=== PATIENT | female | born 1955 | race Caucasian/White ===

== ENCOUNTER 2016-09-05 09:00 | Inpatient (IN) | payer BC ==
[~2016-09-05] VITALS: Ht 165.1 cm; Wt 118.0 kg
--- NOTE | ~2016-09-05 | DS ---
PATIENT'S NAME: DIANNE GLEASON [facility] AGE: 60 Y [address] ROOM: [address] [place], [place] [address] LOCATION: [facility] ADMIT DATE: 09/10/2016 Discharge Summary DISCHARGE DATE: 09/12/2016 FAMILY PHYSICIAN: Herson Valderrama MD ATTENDING PHYSICIAN: Mary Ann Lynn PRIMARY DIAGNOSIS: Osteoarthritis, right hip. SECONDARY DIAGNOSIS: Not applicable. PROCEDURE PERFORMED: Right total hip arthroplasty. HISTORY: The patient is a 60-year-old female, who presents with advanced right hip degenerative joint disease and associated severely compromised activities of daily living. The patient has decided to proceed with total right hip arthroplasty after having been thoroughly counseled regarding the risks, benefits, limitations and alternatives. Please refer to the outpatient clinic notes and admission history and physical for this patient. HOSPITAL COURSE: The patient underwent a total right hip arthroplasty on 09/10/2016 without complications. Spinal anesthesia plus subcutaneous and periarticular local anesthesia (ropivacaine with epinephrine) was utilized. The patient received 24 hours of perioperative prophylactic antibiotics and remained hemodynamically stable, neurovascularly intact throughout the entire hospital course. The postoperative prophylactic deep venous thrombosis prophylaxis consisted of Xarelto, early mobilization and pneumatic compression devices. Daily physical therapy for gait training, transfer training, and reinforcement of hip dislocation precautions were received. The patient progressed well in physical therapy. On the date of discharge, 09/12/2016, the incision at the hip was healing well and showed no signs of infection. DISPOSITION: Home. DISCHARGE ACTIVITY: The patient is to bear weight as tolerated with strict hip dislocation precautions as instructed. There are to be no dressing changes. Dr. Lynn is to be notified immediately if there is any increased pain, fevers, chills, erythema or drainage. DISCHARGE MEDICATIONS: 1. Xarelto 10 mg one tab p.o. daily for 12 days for postoperative DVT prophylaxis. 2. Hydromorphone 2 mg 1 to 2 tabs p.o. every 4 hours p.r.n. for pain. 3. Diazepam 5 mg 1/2 to 1 tab p.o. every 6 hours p.r.n. for muscle spasms. 4. Gabapentin 300 mg one tab p.o. every night for seven days for pain. She was then instructed to continue all her other preadmission medications as PATIENT'S NAME: DIANNE GLEASON [facility] AGE: 60 Y [address] ROOM: [address] [address] LOCATION: [facility] ADMIT DATE: 09/10/2016 Discharge Summary DISCHARGE DATE: 09/12/2016 FAMILY PHYSICIAN: Herson Valderrama MD ATTENDING PHYSICIAN: Mary Ann Lynn instructed by her Internal Medicine doctor. FOLLOWUP: Followup appointment is to be with Dr. Lynn's office in 7 to 9 days postoperatively for her initial postoperative evaluation. MATT NORWOOD PA-C FOR MARY ANN LYNN MD SMW/modl /[id number] d: 09/19/16 0337 t: 09/20/16 1809, DISCHARGE SUMMARY
--- NOTE | ~2016-09-05 | OR ---
PATIENT'S NAME: DIANNE GLEASON [facility] AGE: 60 Y [address] ROOM: [place] [address] LOCATION: [facility] ADMIT DATE: 09/10/2016 OR/Procedure Report DISCHARGE DATE: FAMILY PHYSICIAN: ZENOBIA SHAH MD ATTENDING PHYSICIAN: MARY ANN LYNN SURGEON: Mary Ann Lynn MD TICK ERADICATOR: 1. Jan Maldonado PA-C. 2. Aguila Reynaga TECHNICIAN INVENTORY SPECIALIST/C4 PLANNER. DATE OF PROCEDURE: 09/10/2016 PRE-OP DIAGNOSIS: 1. Primary osteoarthritis, right hip. 2. Obesity (118 kg and 5 feet and 5 inches tall). POST-OP DIAGNOSIS: 1. Primary osteoarthritis, right hip. 2. Obesity (118 kg and 5 feet and 5 inches tall). OPERATION: Right total hip arthroplasty. ANESTHESIA: Spinal anesthesia plus subcutaneous and periarticular local anesthesia (ropivacaine with epinephrine). ESTIMATED BLOOD LOSS: Approximately 250 mL. DRAIN: None. SPECIMEN: None. COMPLICATIONS: None. IMPLANTS: 1. [place] Trident Tritanium size 54 mm hemispherical uncemented acetabular shell with 1 dome hole cover and no screws. 2. [place] X3 neutral acetabular polyethylene liner with 36 mm inner diameter. 3. [place] Accolade II size 5 standard-offset uncemented femoral component. 4. A 36 mm diameter Biolox femoral head with +0 mm neck length. INDICATION FOR SURGERY: The patient is a 60-year-old female who presents with advanced right hip primary osteoarthritis and associated severely compromised activities of daily living. The patient has decided to proceed with hip replacement after having been thoroughly counseled regarding the associated risks, benefits, and limitations. We have specifically reviewed the risks and implications of infection, deep venous thrombosis, pulmonary embolism, PATIENT'S NAME: DIANNE GLEASON [facility] AGE: 60 Y [address] ROOM: [place] [address] LOCATION: [facility] ADMIT DATE: 09/10/2016 OR/Procedure Report DISCHARGE DATE: FAMILY PHYSICIAN: ZENOBIA SHAH MD ATTENDING PHYSICIAN: MARY ANN LYNN mortality, neurovascular complications, blood transfusion (and associated potential for disease transmission or transfusion reaction), stiffness, instability, leg length discrepancy, mechanical deterioration of the components (due to wear and to loosening), and the potential need for revision. DESCRIPTION OF PROCEDURE: The patient was positioned in a lateral decubitus position with the right side up after administration of anesthesia and prophylactic antibiotics. An axillary roll was placed and the non-operative leg was well padded. The pelvis was locked perpendicularly to the floor on a pegboard. The right hip and entire operative extremity were prepped and draped with vigilant sterile technique. The patient's name as well as the intended operative side and procedure were confirmed with a verbal time-out involving myself, the circulating nurse, the scrub nurse, and the anesthesiologist. The right hip was approached through a standard posterolateral incision. The fascia rocky and the gluteus eddie fascia were sharply divided in line with the overlying skin incision. The sciatic nerve was identified and was vigilantly protected throughout the entire case. The short external rotators and posterior capsule were divided from their respective femoral insertions and tagged with four #1 Ethibond sutures for later repair. The hip was posteriorly dislocated with combined flexion, adduction, and internal rotation. The femoral neck osteotomy was performed with an oscillating saw. Inspection of the femoral head demonstrated full-thickness loss of articular cartilage throughout the anterosuperior half of the femoral head. There was a small osteophyte at the anterior margin of the femoral head neck junction. There was no femoral head collapse. Circumferential acetabular exposure was obtained. Examination of acetabulum demonstrated a moderate effusion consisting of benign-appearing translucent synovial fluid. There were small osteophytes at the medial acetabulum, anterior acetabulum, and inferior acetabulum. There was no dysplasia. There was full-thickness loss of articular cartilage throughout the anterosuperior half of its weightbearing surface. Remnants of the acetabular labrum were sharply thoroughly excised. The acetabulum was sequentially progressively reamed up to 53 mm with hemispherical power reamers. The final acetabular shell was impacted into position in 20 degrees of anteversion and 45 degrees of inclination. An excellent press-fit was obtained. No supplemental dome screw fixation was necessary. A neutral trial liner was inserted. Attention was next focused upon femoral preparation. The femoral canal PATIENT'S NAME: DIANNE GLEASON [facility] AGE: 60 Y [address] ROOM: [address] [address] LOCATION: [facility] ADMIT DATE: 09/10/2016 OR/Procedure Report DISCHARGE DATE: FAMILY PHYSICIAN: ZENOBIA SHAH MD ATTENDING PHYSICIAN: MARY ANN LYNN initiator was utilized. No reaming was performed (except for with the canal finder). The femoral canal was subsequently sequentially progressively broached up to a size 5. The size 5 broach obtained excellent axial and rotational stability. Trial reductions with the above specified construct yielded acceptable stability and acceptable reproduction of leg length and offset. All trial components were removed. The final acetabular liner was inserted with excellent circumferential visualization of its locking mechanism to assure adequate deployment. The final femoral component was impacted into position. The femoral component achieved excellent axial and rotational stability. The trunnion of the femoral component was vigilantly protected prior to placement of the femoral head. The trunnion of the femoral component was thoroughly cleaned and dried prior to placement of the femoral head. The incision was thoroughly irrigated with bacteriostatic pulsatile saline lavage multiple times throughout the case. The entire joint space was thoroughly inspected and thoroughly irrigated to assure that there was no residual debris of any sort. A final reduction was then performed. After final reduction, the hip could be firmly externally rotated in full extension and zero degrees of abduction without anterior subluxation. In neutral rotation and zero degrees of abduction, the hip could be firmly flexed to 120 degrees without instability. At 90 degrees of flexion and zero degrees abduction, the hip could be internally rotated to 65 degrees before there was any hint of posterior subluxation. The posterior capsule and short external rotators were repaired through two drill holes in the posterior aspect of the greater trochanter. The fascia rocky and gluteus eddie fascia were closed with multiple simple and [id number] interrupted # 1 Ethibond and #1 Vicryl sutures. Subcutaneous tissues were thoroughly re-irrigated with bacteriostatic pulsatile saline lavage. Subcutaneous tissues were re-approximated with simple buried interrupted #0 Vicryl sutures. The skin was closed with superficial buried interrupted 2-0 Vicryl sutures followed by a running subcuticular 3-0 Monocryl suture, followed by Octylseal, followed by Steri- Strips with benzoin, followed by an occlusive Mepilex dressing. There were no intra-operative complications. It should be noted that the physician's assistant football coach played an active, integral role throughout this entire operation. By providing expert retraction, he greatly facilitated and expedited safe and effective exposure of the proximal femur and acetabulum for preparation and implantation of the components. He PATIENT'S NAME: DIANNE GLEASON [facility] AGE: 60 Y [address] ROOM: [address] [address] LOCATION: [facility] ADMIT DATE: 09/10/2016 OR/Procedure Report DISCHARGE DATE: FAMILY PHYSICIAN: ZENOBIA SHAH MD ATTENDING PHYSICIAN: MARY ANN LYNN was also actively involved in the patient's positioning, prepping and draping, as well as wound closure. MD PHYLLIS COONEY/chuy /[id number] d: 09/10/16 1809 t: 09/22/16 2141, OPERATIVE SUMMARY
[2016-09-05] MEDS ORDERED: ALEVE220 M1 PO (16:21)
[2016-09-12] MEDS ORDERED: TYLENOL EXTRA500 MG PO (17:36)
[2016-09-12] MEDS ORDERED: COLACE100 MG PO (17:37)
[2016-09-12] MEDS ORDERED: MIRALAX17 GM PO (17:38)
[2016-09-12] MEDS ORDERED: NEURONTIN300 MG PO (17:38)
[2016-09-12] MEDS ORDERED: XARELTO10 MG PO (17:39)
[2016-09-12] MEDS ORDERED: VALIUM5 MG PO (17:41)
[2016-09-12] MEDS ORDERED: DILAUDID 2MG(HYD2 MG PO (17:42)
== END 2016-09-12 18:30 | disposition disaster alternative care site (69) | DRG 470 ==
LOC: G3N 09-10 06:09
PROVIDERS: ADMIT Orthopaedic Surgery
PROC: 0SR902A Replacement of Right Hip Joint with Metal on Polyethylene Synthetic Substitute, Uncemented, Open Approach (ICD-10-PCS; principal; 2016-09-10)
DX: M16.11 Unilateral primary osteoarthritis, right hip (principal); Z68.41 Body mass index [BMI] 40.0-44.9, adult; E66.9 Obesity, unspecified
CPT/HCPCS: C1776; J0690; J1100; J1170; J1885; J2001; J2250; J2405; J2795; J7120

== ENCOUNTER → 2016-09-05 | Outpatient (CLI) | payer BC ==
[~2016-09-05] MED LIST: ALEVE220 M1 PO; COLACE100 MG PO; DILAUDID 2MG(HYD2 MG PO; MIRALAX17 GM PO; NEURONTIN300 MG PO; TYLENOL EXTRA500 MG PO; VALIUM5 MG PO; XARELTO10 MG PO
== END | disposition disaster alternative care site (69) ==
LOC: GNJRC 10:27
DX: M16.11 Unilateral primary osteoarthritis, right hip (principal)